=== PATIENT | female | born 1975 | race Caucasian/White ===

== ENCOUNTER 2021-07-18 17:22 | Emergency (ER) | payer OTHER, SELFPAY ==
[2021-07-18] VITALS (7 sets, daily range): BP systolic 115–136; BP diastolic 74–85; PULSE 80–86; RESP 16; TEMP 36.6; O2SAT 96–97; BMI 24.0
--- NOTE | 2021-07-18 17:28 | XRR_ITS ---
PROCEDURE INFORMATION: Exam: XR Left Foot Exam date and time: 07/18/2021 6:20 PM Age: 45 years old Clinical indication: Injury or trauma; Fall; Blunt trauma; Ankle; Right; Additional info: Foot pain TECHNIQUE: Imaging protocol: XR Left foot. Views: 3 or more views. COMPARISON: CR (LOW EXM, ) 07/18/2021 5:53 PM FINDINGS: Bones/joints: Normal. Soft tissues: Normal. XR/XR foot LT min 3V* 36595 IMPRESSION: No acute findings.
--- NOTE | 2021-07-18 17:28 | XRR_ITS ---
PROCEDURE INFORMATION: Exam: XR Right Tibia and Fibula Exam date and time: 07/18/2021 5:53 PM Age: 45 years old Clinical indication: Injury or trauma; Fall; Blunt trauma; Lower leg; Right; Additional info: Proximal tib pain TECHNIQUE: Imaging protocol: XR Right tibia and fibula. Views: 2 views. COMPARISON: No relevant prior studies available. FINDINGS: Bones/joints: Subtle suspected oblique fracture to the proximal fibular diaphysis, a CT could further characterize this. Soft tissues: Normal. XR/XR tibia fibula RT 2V 53355 IMPRESSION: Subtle suspected oblique fracture to the proximal fibular diaphysis, a CT could further characterize this.
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
[2021-07-18] MEDS: acetaminophen 500 mg Tablet PO (17:39)
--- NOTE | 2021-07-18 19:37 | CTR_ITS ---
PROCEDURE INFORMATION: Exam: CT Right Lower Extremity Without Contrast, Knee Exam date and time: 07/18/2021 7:50 PM Age: 45 years old Clinical indication: Abnormal findings; Abnormal imaging study; Xray tib fib; Additional info: Pain, possible FX on XR prox fib TECHNIQUE: Imaging protocol: CT of the Right lower extremity without contrast was performed. Exam focused on the knee. Radiation optimization: All CT scans at this facility use at least one of these dose optimization techniques: automated exposure control; mA and/or kV adjustment per patient size (includes targeted exams where dose is matched to clinical indication); or iterative reconstruction. COMPARISON: CR (LOW EXM, ) 07/18/2021 5:53 PM RADIATION DOSE METRICS: Total DLP (mGy-cm): 111.51 FINDINGS: Bones/joints: Acute nondisplaced fracture of the proximal shaft of the fibula noted. Proximal tibia is intact. Distal femur is intact. There is mild degenerative narrowing of the medial joint compartment. The lateral compartment is preserved. Minimal lateral subluxation of the patella noted. Patella is intact. Soft tissues: There is mild subcutaneous edema of the soft tissues. No fluid collection. The musculature appears unremarkable. CT/CT knee RT wo con* [id number] IMPRESSION: 1. Acute nondisplaced fracture of the proximal shaft of the fibula noted. 2. No additional fractures are noted.
--- NOTE | 2021-07-20 12:24 | DCPLANNER ---
Addendum entered by Dasia Rose 07/29/21 06:29: Patient had a follow up appointment scheduled for 07.21.21 with Michael Rothman at ortho - patient did attend appointment. Original Note: night club manager had message to schedule a follow up appointment for patient with ortho, Dr. Valentine. night club manager sent patients information to the front office staff at ortho. Patients information will be printed and reviewed. Clinic will call patient with appointment information.
== END 2021-07-18 21:32 | disposition home or self-care (01) ==
PROVIDERS: Emergency Provider Emergency Medicine
DX: S82.431A Displaced oblique fracture of shaft of right fibula, initial encounter for closed fracture (principal); M79.605 Pain in left leg; M79.604 Pain in right leg; M25.471 Effusion, right ankle; S70.312A Abrasion, left thigh, initial encounter; V94.9XXA Unspecified water transport accident, initial encounter
CPT/HCPCS: 29530; 73590; 73600; 73610; 73620; 73630; 73700; 99283; E0114

== ENCOUNTER 2021-08-01 15:23 | Outpatient (CLI) | payer OTHER, SELFPAY ==
--- NOTE | 2021-08-01 15:57 | MR_ITS ---
WS: [id number] MRI RIGHT KNEE NONCONTRAST TECHNIQUE: Axial PD, coronal PD fat sat, coronal PD, sagittal PD, and sagittal PD fat-sat images obta ined. CLINICAL INFORMATION: INSTABILITY RIGHT KNEE JOINT COMPARISON: CT July 18, 2021 FINDINGS: Again seen is the nondisplaced spiral type fracture of the proximal fibula head. Diffuse edema in the proximal fibula. Associated T2 signal abnormality with a tiny nondisplaced fracture involving the la teral tibial condyle with diffuse edema. Tiny visualized fracture line. Additional contusion involvin g the medial tibial condyle extending to the articular surface. In addition, acute contusion with anabel ma involving the medial tibial spine. High-grade tear of the ACL. No normal visualized fibers. PCL is normal in appearance. Small supra patellar effusion. Diffuse edema about the knee. Chronic thinning of the medial and later al meniscus. No acute appearing meniscal tears. Distal quadriceps and patella tendons are intact. Hyp ertrophic patella. Subluxation of the patella laterally within the trochlear groove. Moderate chondro malacia patella. Irregularity with high-grade tear involving the medial patellar retinaculum. Recomme nd correlation for patellar instability. High-grade partial tear involving the medial collateral liga ment with edema and fluid. Lateral collateral ligament appears intact. MR/MR knee RT wo con* [id number] IMPRESSION: 1. Stable spiral type fracture involving the proximal fibula head with diffuse edema. 2. Nondisplaced tiny fracture involving the lateral tibial condyle with diffus e edema extending to the articular surface. Additional contusion involving the medial femoral condyle. 3. High-grade tear of the ACL with diffuse edema involving the medial tibial s pine. No visualized displaced avulsion fractures. 4. No acute appearing meniscal tears. 5. Patella is subluxed laterally within the trochlear groove suspicious for pa tella instability. Tear of the medial patellar retinaculum with high-grade part ial tear of the proximal medial collateral ligament with diffuse edema and flui d. 6. Lateral collateral ligament appears intact. 7. Small suprapatellar effusion with diffuse soft tissue edema. 8. Mild chondromalacia patella. No visualized patella avulsion. Outbridge grading: grade II: blister-like swelling/fraying of articular cartil age extending to surface
== END 2021-08-01 15:24 | disposition home or self-care (01) ==
PROVIDERS: PCP Family Medicine; Visit Provider Family Medicine
DX: M25.361 Other instability, right knee (principal); S82.444A Nondisplaced spiral fracture of shaft of right fibula, initial encounter for closed fracture; S82.134A Nondisplaced fracture of medial condyle of right tibia, initial encounter for closed fracture; S83.421A Sprain of lateral collateral ligament of right knee, initial encounter; S83.011A Lateral subluxation of right patella, initial encounter; M22.41 Chondromalacia patellae, right knee; X58.XXXA Exposure to other specified factors, initial encounter
CPT/HCPCS: 73721

== ENCOUNTER 2021-10-26 12:01 | Outpatient (CLI) | payer OTHER, SELFPAY ==
--- NOTE | 2021-10-26 12:19 | XR_ITS ---
WS: [id number] Abdomen series, Flat and upright 10/26/2021 Clinical Data: severe constipation Comparison: None. Findings: No free air is seen beneath the diaphragms. No abnormal intra-abdominal masses or calcifica tions are seen. There is a moderate amount of fecal material throughout the colon. There are phleboli ths in the pelvis. XR/XR abdomen min 2V 25201 Impression: Moderate amount of fecal material in the colon.
== END 2021-10-26 12:02 | disposition home or self-care (01) ==
LOC: RAD 12:04
PROVIDERS: PCP Family Medicine; Visit Provider Family Medicine
DX: K59.00 Constipation, unspecified (principal); R10.9 Unspecified abdominal pain
CPT/HCPCS: 74019; 80053

== ENCOUNTER → 2022-01-31 13:02 | Outpatient (BNVA) | payer SELFPAY | PROVIDERS: PCP Family Medicine; Visit Provider Family Medicine | DX: Z01.89 Encounter for other specified special examinations (principal) ==

== ENCOUNTER → 2022-08-01 09:54 | Outpatient (BNVA) | payer SELFPAY | PROVIDERS: PCP Family Medicine; Visit Provider Family Medicine | DX: Z01.89 Encounter for other specified special examinations (principal) ==

== ENCOUNTER → 2022-10-31 11:31 | Outpatient (BNVA) | payer SELFPAY | PROVIDERS: PCP Family Medicine; Visit Provider Family Medicine | DX: Z01.89 Encounter for other specified special examinations (principal) ==

== ENCOUNTER → 2023-01-30 13:11 | Outpatient (BNVA) | payer SELFPAY | PROVIDERS: PCP Family Medicine; Visit Provider Family Medicine | DX: Z01.89 Encounter for other specified special examinations (principal) ==

== ENCOUNTER → 2024-02-25 09:37 | Outpatient (BNVA) | payer OTHER, SELFPAY | PROVIDERS: PCP Family Medicine; Visit Provider Family Medicine | DX: R10.9 Unspecified abdominal pain (principal) | CPT/HCPCS: 80048 ==

== ENCOUNTER → 2024-04-15 08:22 | Outpatient (BNVA) | payer OTHER, SELFPAY | PROVIDERS: Absent Provider Family Medicine; PCP Family Medicine; Visit Provider Family Medicine | DX: Z13.6 Encounter for screening for cardiovascular disorders (principal) | CPT/HCPCS: 80061; 82947; 83036 ==